=== PATIENT | female | born 1985 ===

== ENCOUNTER 2017-03-10 12:23 | Emergency (ER) | payer OTHER ==
[2017-03-10 12:27] VITALS: BP 121/64; PULSE 74; RESP 20; TEMP 97.7; O2SAT 99
--- NOTE | 2017-03-10 12:43 | ED PDOC ---
HPI: Abdomen Time Seen by Provider: 03/10/17 12:42 Chief Complaint (Nursing): Abdominal Pain Chief Complaint (Provider): abdominal pain History Per: Patient Additional Complaint(s): Patient states she was sitting at home on her couch when she developed sharp pain to lower abdomen. She states it feels like a pocket of gas is causing her discomfort. She called ambulance and was brought here. Patient's last period was February 07 and she is due for her menses today. She is not sure if she is . She denies any vaginal bleeding or discharge at this time. She denies any concern for STDs. No associated nausea, vomiting, diarrhea or constipation. Past Medical History Reviewed: Historical Data, Nursing Documentation, Vital Signs Vital Signs: Last Vital Signs Temp 97.7 F 03/10/17 12:25 Pulse 74 03/10/17 12:25 Resp 20 03/10/17 12:25 BP 121/64 03/10/17 12:25 Pulse Ox 99 03/10/17 15:49 - Medical History PMH: No Chronic Diseases - Surgical History Other surgeries: gastric sleeve 2 years ago - Family History Family History: States: No Known Family Hx - Living Arrangements Living Arrangements: With Family - Social History Current smoker - smoking cessation education provided: No Alcohol: None Drugs: Denies - Home Medications Home Medications: Ambulatory Orders Medication Instructions Recorded Ondansetron ODT [Zofran ODT] 4 mg PO Q8H PRN #20 odt 12/15/14 traMADol [Ultram] 50 mg PO QID PRN #20 tab 12/15/14 Ibuprofen [Motrin] 600 mg PO Q6 PRN #15 tab 03/10/17 - Allergies Allergies/Adverse Reactions: Allergies Allergy/AdvReac Type Severity Reaction Status Date / Time No Known Allergies Allergy Unverified 12/15/14 14:38 Review of Systems ROS Statement: Except As Marked, All Systems Reviewed And Found Negative Constitutional: Negative for: Fever Cardiovascular: Negative for: Chest Pain Respiratory: Negative for: Cough Gastrointestinal: Positive for: Abdominal Pain. Negative for: Nausea, Vomiting , Diarrhea, Constipation Genitourinary Female: Positive for: Dysuria. Negative for: Frequency, Incontinence, Hematuria, Vaginal Discharge, Vaginal Bleeding Physical Exam - Reviewed Nursing Documentation Reviewed: Yes Vital Signs Reviewed: Yes - Physical Exam Appears: Positive for: Well, Non-toxic, No Acute Distress Head Exam: Positive for: ATRAUMATIC, NORMAL INSPECTION Skin: Positive for: Normal Color. Negative for: Rash Eye Exam: Positive for: Normal appearance, EOMI, PERRL Cardiovascular/Chest: Positive for: Regular Rate, Rhythm Respiratory: Positive for: Normal Breath Sounds Gastrointestinal/Abdominal: Positive for: Normal Exam, Bowel Sounds, Soft. Negative for: Tenderness, Distended, Guarding, Rebound Back: Negative for: L CVA Tenderness, R CVA Tenderness Extremity: Negative for: Pedal Edema Neurologic/Psych: Positive for: Alert, Oriented - Laboratory Results Result Diagrams: 03/10/17 12:45 03/10/17 14:25 Urine POC: Negative Urine dip results: Negative for: Leukocyte Esterase, Blood, Nitrate, Ketones, Glucose, Bilirubin, Protein - ECG O2 Sat by Pulse Oximetry: 99 Pulse Ox Interpretation: Normal Medical Decision Making Medical Decision Makin32 year old with abdominal pain. Abdominal exam is benign. test is negative. Plan: Urine dip CBC CMP IVF IV toradol PO [place] Urine culture CHL/GC cultures sent Pain resolved after toradol. Patient states she feels much better. Abdomen remains non-tender and benign on re-examination. Rx motrin given. Patient was referred to clinic for follow up. Patient is aware she can RTED at any time if acutely worse. Disposition - Clinical Impression Clinical Impression: Abdominal pain, Abdominal cramps - Patient ED Disposition Is Patient to be Admitted: No Counseled Patient/Family Regarding: Studies Performed, Diagnosis, Need For Followup, Rx Given - Disposition Referrals: [facility] [Outside] Disposition: Routine/Home Disposition Time: 15:47 Condition: IMPROVED Additional Instructions: Take prescription medications as directed as needed for pain. Follow-up with primary doctor or clinic in 2-3 days. Prescriptions: Ibuprofen [Motrin] 600 mg PO Q6 PRN #15 tab PRN Reason: Pain, Moderate (4-7) Instructions: Abdominal Pain (ED) Results - Lab Results Lab Results: 03/10/17 03/10/17 14:25 12:45 WBC 7.8 RBC 4.67 Hgb 13.2 Hct 39.9 MCV 85.6 MCH 28.3 MCHC 33.1 RDW 14.1 Plt Count 222 MPV 8.7 Neut % (Auto) 75.3 H Lymph % (Auto) 15.7 L [place] % (Auto) 7.9 Eos % (Auto) 0.6 Baso % (Auto) 0.5 Neut # 5.9 Lymph # 1.2 [place] # 0.6 Eos # 0.0 Baso # 0.0 Sodium 142 Potassium 4.4 Chloride 107 Carbon Dioxide 25 Anion Gap 15 BUN 13 Creatinine 0.6 L Est GFR ( Amer) > 60 Est GFR (Non-Af Amer) > 60 Random Glucose 84 Calcium 9.1 Total Bilirubin 0.3 AST 30 ALT 26 Alkaline Phosphatase 66 Total Protein 6.9 Albumin 3.4 L Globulin 3.5 Albumin/Globulin Ratio 1.0
[2017-03-10] MEDS ORDERED: Sodium Chloride 0.9% 1,000 ML IV STA (13:32)
[2017-03-10] MEDS ORDERED: Alum-Mag Hydrox-Simethicone Susp (30 mL) PO STA (13:44)
[2017-03-10 14:06] LABS: BASO % 0.5 % (0.0-2.0); EOS % 0.6 % (0.0-4.0); HEMATOCRIT 39.9 % (34.0-47.0); LYMPH # 1.2 K/uL (1.0-4.3); LYMPH % 15.7 % (20.0-40.0); MEAN CELL VOLUME 85.6 fl (81.0-99.0); MEAN CORPUSCULAR HEMOGLOBIN 28.3 pg (27.0-31.0); MEAN CORPUSCULAR HGB CONC 33.1 g/dL (33.0-37.0); MEAN PLATELET VOLUME 8.7 fl (7.2-11.7); MONO # 0.6 K/uL (0.0-0.8); MONO % 7.9 % (0.0-10.0); NEUT # 5.9 K/uL (1.8-7.0); NEUT % 75.3 % (50.0-75.0); NRBC % 0.1 % (0.0-0.0); RED CELL DISTRIBUTION WIDTH 14.1 % (11.5-14.5); WHITE BLOOD COUNT 7.8 K/uL (4.8-10.8)
[2017-03-10] MEDS ORDERED: Alum-Mag Hydrox-Simethicone Susp (30 mL) ONE (14:15)
[2017-03-10 14:56] LABS: ALKALINE PHOSPHATASE 66 U/L (38-126); ALT/SGPT 26 U/L (9-52); AST/SGOT 30 U/L (14-36); BILIRUBIN,TOTAL 0.3 mg/dl (0.2-1.3); BLOOD UREA NITROGEN 13 mg/dl (7-17); CALCIUM 9.1 mg/dL (8.4-10.2); CARBON DIOXIDE 25 mmol/L (22-30); CHLORIDE 107 mmol/L (98-107); GFR AFRICAN-AMERICAN > 60; GLUCOSE,RANDOM 84 mg/dL (65-105); POTASSIUM 4.4 MMOL/L (3.6-5.0); SODIUM 142 mmol/l (132-148); TOTAL PROTEIN 6.9 G/DL (6.3-8.2)
== END 2017-03-10 16:22 | disposition home or self-care (01) ==
LOC: H.ER 12:23
DX: R10.9 Unspecified abdominal pain (principal)